=== PATIENT | male | born 1965 | race Caucasian/White ===

== ENCOUNTER 2016-08-18 14:55 | Emergency (ER) | payer MEDICAID, OTHER ==
[~2016-08-18] VITALS: Ht 170.2 cm; Wt 82.5 kg
[2016-08-18 15:04] VITALS: Ht 170.2 cm; Wt 82.5 kg
[2016-08-18] MEDS ORDERED: IBUP-1542 PO (15:31)
[2016-08-18] MEDS ORDERED: AMOX1TAB10 PO (15:31)
--- NOTE | 2016-08-18 15:37 | ERD ---
ER Documentation Chief Complaint Date/Time DATE: 08/18/16 TIME: 15:33 Chief Complaint BILATERAL EARACHE X 1 WEEK HPI This is a 51-year-old male complaining of bilateral ear pain 2 weeks associated with decreased hearing. Patient denies any trauma. Denies any medical or surgical history. Patient took ibuprofen for symptom relief. Patient denies any recent history of fever, headache, cough, runny nose, shortness of breath, chest pain or dizziness. Denies any recent sick contact or recent travel outside the country. ROS All systems reviewed and are negative except as per history of present illness. Medications Home Meds Active Scripts Ibuprofen* (Motrin*) 600 Mg Tab, 600 MG PO Q6H Y for PAIN AND OR ELEVATED TEMP, #30 TAB Prov:CORNELIUS ROBLES 08/18/16 Amoxicillin/Potassium Clav (Amox-Clav 875-125 mg Tablet) 875-125 mg Tab, 1 TAB PO BID for 10 Days, #20 TAB Prov:CORNELIUS ROBLES 08/18/16 Physical Exam Vitals Vital Signs Date Time Temp Pulse Resp B/P Pulse Ox O2 Delivery O2 Flow Rate FiO2 08/18/16 15:04 98.4 67 18 124/76 Physical Exam Physical Exam CONST: Well-developed, well-nourished, in no acute distress. Nontoxic in appearance. HEENT: Right TM perforation with purulent drainage. Left TM is erythematous without perforation. Normal conjunctiva. EOM intact. External ear is normal. Clear oropharnyx without erythema. No uvular deviation. Moist mucous membranes. Supple neck. No meningismus. No submandibular induration. RESP: Clear to auscultation bilaterally. No wheezing. CARDIO: Regular rate and rhythm, no murmurs. ABD: Soft, non tender, non distended. Normal bowel sounds. No McBurney's point tenderness. No guarding or rigidity. No peritoneal signs. SKIN: No petechiae or rashes. BACK: No midline or flank tenderness. EXT: No cyanosis or edema. Distal pulses equal and bilateral. NEURO: Awake and alert, appropriate for age. Procedures/[facility] EMERGENCY DEPARTMENT COURSE/MEDICAL DECISION MAKING This is a 51-year-old male who comes to the emergency room secondary to complaints of bilateral ear pain for 2 weeks associated with decreased hearing. Right TM perforation noted with purulent drainage. Left TM is erythematous without perforation. Patient is afebrile upon assessment. My primary diagnosis is otitis media. Secondary diagnosis is ear pain Differential diagnoses considered but not limited to pneumonia, bronchitis, influenza, upper respiratory infection, asthma, pharyngitis, peritonsillar abscess, otitis media, otitis externa.. Pt is hemodynamically stable upon reassessment. The patient was discharged for outpatient management with a prescription for Augmentin and ibuprofen. The patient was advised to followup with their PMD in 1 -2 days and to return to the Emergency Department if there are any new or worsening symptoms. The patient understood and agreed with the diagnosis, treatment and plan. Patient is stable for discharge at this time. Departure Diagnosis: Primary Impression: Otitis media Otitis media type: suppurative Laterality: right Chronicity: acute Recurrence: not specified as recurrent Spontaneous tympanic membrane rupture: with spontaneous rupture Qualified Code: H66.011 - Acute suppurative otitis media of right ear with spontaneous rupture of tympanic membrane, recurrence not specified Additional Impression: Ear pain Laterality: bilateral Qualified Code: H92.03 - Ear pain, bilateral Condition: Stable Patient Instructions: Otitis Media, Abx Tx (Adult) [facility]errals[facility] Usted se ibrahim hecho un examen mdico de control que le indica que no est en tavo condicin que requiera tratamiento urgente en el Departamento de Emergencia. Un estudio ms profundo y el tratamiento de hendrix condicin pueden esperar sin ningn riesgo hasta que usted sea atendida/o en el consultorio de hendrix mdico o tavo cl yolanda. Es responsabilidad suya arreglar tavo ronnie para el seguimiento del maura. MANEJO DE CONDICIONES NO URGENTES EN EL FUTURO 1) Si usted tiene un mdico de atencin primaria: Usted debera llamar a hendrix mdico de atencin primaria antes de venir al departamento de emergencia. Despus de las horas de consultorio, hendrix doctor o hendrix asociado/a est disponible por telfono. El mdico o enfermero de jeanmarie en el servicio telefnico puede asesorarle por olga medio para atender el problema, o maura contrario se puede programar tavo ronnie. 2) Si usted no tiene un mdico de atencin primaria: Llame al mdico o clnica de referencia que aparece abajo concepción las horas de consultorio para hacer tavo ronnie para que le vean. CLINICAS: [facility] [phone] [facility] [phone] [address] [facility] [phone] [place] [id number] [phone] [place] [address] [phone] [facility] [phone] [address] [facility] [facility] () Usted se ibrahim hecho un examen mdico de control que le indica que no est en tavo condicin que requiera tratamiento urgente en el Departamento de Emergencia. Un estudio ms profundo y el tratamiento de hendrix condicin pueden esperar sin ningn riesgo hasta que usted sea atendida/o en el consultorio de hendrix mdico o tavo cl yolanda. Es responsabilidad suya arreglar tavo ronnie para el seguimiento del maura. MANEJO DE CONDICIONES NO URGENTES EN EL FUTURO 1) Si usted tiene un mdico de atencin primaria: Usted debera llamar a hendrix mdico de atencin primaria antes de venir al departamento de emergencia. Despus de las horas de consultorio, hendrix doctor o hendrix asociado/a est disponible por telfono. El mdico o enfermero de jeanmarie en el servicio telefnico puede asesorarle por olga medio para atender el problema, o maura contrario se puede programar tavo ronnie. 2) Si usted no tiene un mdico de atencin primaria: Llame al mdico o condado institucions de referencia que aparece abajo concepción las horas de consultorio para hacer tavo ronnie para que le vean. SI USTED NO PUEDE PAGAR PARA CARLOS UN MEDICO puede ir a: [facility] [address] [place] [address] [facility] [address] [place] [address] [facility] [address] [place] [address] [facility] [address] [place], [place] [id number] Additional Instructions: evitar el uso de q-tips en los odos Seguimiento con hendrix mdico de atencin primaria en 1-2 pate. Volver al Departamento de la emergencia inmediatamente si tiene alguno nuevo o empeoramiento de los sntomas, incontrolada fiebre u otros sntomas inexplicables. [employer] todos los medicamentos jamal lo indique. CORNELIUS ROBLES Aug 18, 2016 15:37
== END 2016-08-18 15:37 | disposition home or self-care (01) ==
LOC: E/R 14:55
DX: H66.011 Acute suppurative otitis media with spontaneous rupture of ear drum, right ear (principal)
CPT/HCPCS: 99283

== ENCOUNTER 2017-01-10 18:46 | Emergency (ER) | payer MEDICAID ==
[~2017-01-10] VITALS: Ht 172.7 cm; Wt 80.5 kg
[~2017-01-10 18:46] MED LIST: AMOX1TAB10 PO; IBUP-1542 PO
[2017-01-10 19:25] VITALS: Ht 172.7 cm; Wt 80.5 kg
[2017-01-10] MEDS ORDERED: SOD CHLORIDE 0.9% 1,000 ML IV STA (19:45)
[2017-01-10] MEDS ORDERED: ONDANSETRON 4 MG INJ IV STA (19:45)
[2017-01-10] MEDS ORDERED: morphine 4 MG/ML VIAL IV STA (19:45)
[2017-01-10] MEDS ORDERED: ACETAMINOPHEN 500 MG TAB PO STA (19:49)
--- NOTE | 2017-01-10 19:49 | ERD ---
ER Documentation Chief Complaint Date/Time DATE: 01/10/17 TIME: 19:48 Chief Complaint abd pain n/v/d x 2 days HPI This is a 51-year-old male who presents the emergency department today complaining of abdominal pain, vomiting, diarrhea and fevers for the past 2 days. Patient states he took Tylenol approximately 2 hours ago. States that a couple of days ago he ate at a street truck and started vomiting 1 hour after that. Denies any dysuria. ROS All systems reviewed and are negative except as per history of present illness. Medications Home Meds Active Scripts Dicyclomine Hcl* (Bentyl*) 10 Mg Capsule, 10 MG PO QID, #30 CAP Prov:RADHA CASTELLON-C 01/10/17 Ondansetron Hcl* (Zofran*) 4 Mg Tablet, 4 MG PO Q6H for NAUSEA AND/OR VOMITING, #30 TAB Prov:RADHA CASTELLON-C 01/10/17 Acetaminophen* (Tylophen*) 500 Mg Capsule, 1 CAP PO Q6H Y for PAIN AND OR ELEVATED TEMP, #30 CAP Prov:RADHA CASTELLONC 01/10/17 Ibuprofen* (Motrin*) 800 Mg Tab, 800 MG PO Q6, #30 TAB Prov:RADHA CASTELLON-C 01/10/17 Ibuprofen* (Motrin*) 600 Mg Tab, 600 MG PO Q6H Y for PAIN AND OR ELEVATED TEMP, #30 TAB Prov:CORNELIUS ROBLES 08/18/16 Amoxicillin/Potassium Clav (Amox-Clav 875-125 mg Tablet) 875-125 mg Tab, 1 TAB PO BID for 10 Days, #20 TAB Prov:CORNELIUS ROBLES 08/18/16 Allergies Allergies: Coded Allergies: No Known Allergy (Unverified , 01/10/17) Physical Exam Vitals Vital Signs Date Time Temp Pulse Resp B/P Pulse Ox O2 Delivery O2 Flow Rate FiO2 01/10/17 19:25 100.4 83 18 122/78 99 Physical Exam Const: No acute distress Head: Atraumatic Eyes: Normal Conjunctiva ENT: Normal External Ears, Nose and Mouth. Neck: Full range of motion..~ No meningismus. Resp: Clear to auscultation bilaterally Cardio: Regular rate and rhythm, no murmurs Abd: Soft, diffuse abdominal pain worse in the epigastric region non distended. Normal bowel sounds Skin: No petechiae or rashes Back: No midline or flank tenderness Ext: No cyanosis, or edema Neur: Awake and alert Psych: Normal Mood and Affect Result Diagram: 01/10/17201501/10/172015 Results 24 hrs Laboratory Tests Test 01/10/17 20:16 White Blood Count 6.410^3/ul Red Blood Count 5.1210^6/ul Hemoglobin 15.9g/dl Hematocrit 45.7% Mean Corpuscular Volume 89.3fl Mean Corpuscular Hemoglobin 31.1pg Mean Corpuscular Hemoglobin Concent 34.8g/dl Red Cell Distribution Width 11.9% Platelet Count 39703^3/UL Mean Platelet Volume 11.2fl Neutrophils % 70.2% Lymphocytes % 17.1% Monocytes % 10.5% Eosinophils % 0.8% Basophils % 0.6% Nucleated Red Blood Cells % 0.0/100WBC Neutrophils # (Manual) 4.510^3/ul Lymphocytes # 1.110^3/ul Monocytes # 0.710^3/ul Eosinophils # 0.110^3/ul Basophils # 0.010^3/ul Nucleated Red Blood Cells # 0.010^3/ul Urine Color YELLOW Urine Clarity CLEAR Urine pH 7.0 Urine Specific [place] 1.013 Urine Ketones NEGATIVEmg/dL Urine Nitrite NEGATIVEmg/dL Urine Bilirubin NEGATIVEmg/dL Urine Urobilinogen NEGATIVEmg/dL Urine Leukocyte Esterase NEGATIVELeu/ul Urine Microscopic RBC 0/HPF Urine Microscopic WBC 0/HPF Urine Hemoglobin NEGATIVEmg/dL Urine Glucose NEGATIVEmg/dL Urine Total Protein 1+mg/dl Sodium Level 138mmol/L Potassium Level 3.3mmol/L Chloride Level 98mmol/L Carbon Dioxide Level 28mmol/L Anion Gap 15 Blood Urea Nitrogen 16mg/dl Creatinine 1.00mg/dl Glucose Level 226mg/dl Calcium Level 9.3mg/dl Total Bilirubin 0.4mg/dl Direct Bilirubin 0.00mg/dl Indirect Bilirubin 0.4mg/dl Aspartate Amino Transf (AST/SGOT) 32IU/L Alanine Aminotransferase (ALT/SGPT) 47IU/L Alkaline Phosphatase 88IU/L Total Protein 7.5g/dl Albumin 4.4g/dl Globulin 3.10g/dl Albumin/Globulin Ratio 1.41 Lipase 41U/L Current Medications Medications (Trade) Dose Ordered Sig/Suleman Route PRN Reason Start Time Stop Time Status Last Admin Dose Admin Sodium Chloride (NS) 1,000 ml @ 1,000 mls/hr Q1H STAT IV 01/10/17 19:45 01/10/17 20:44 DC 01/10/17 20:23 Morphine Sulfate (morphine) 4 mg ONCE STAT IV 01/10/17 19:45 01/10/17 19:47 DC 01/10/17 20:23 Ondansetron HCl (Zofran Inj) 4 mg ONCE STAT IV 01/10/17 19:45 01/10/17 19:48 DC 01/10/17 20:23 Famotidine (Pepcid) 20 mg ONCE ONCE PO 01/10/17 20:00 01/10/17 20:01 DC 01/10/17 20:23 Acetaminophen (Tylenol Tab) 500 mg ONCE STAT PO 01/10/17 19:49 01/10/17 19:50 DC 01/10/17 20:23 DIAGNOSTIC IMAGING REPORT Patient: YASSINE MIGUEL : 1965 Age: 51 Sex: M MR #: [id number] DOS: 01/10/171944 Ordering MD: RADHA CASTELLON PA-C Location: [facility] Room/Bed: PROCEDURE: CT ABDOMEN AND PELVIS WITHOUT CONTRAST: CLINICAL INDICATION: 51 years of age, male , abdominal pain. COMPARISON: None TECHNIQUE: CT of the abdomen and pelvis was performed without intravenous contrast. Oral contrast was not administered prior to the examination. Coronal and sagittal reformatted images were obtained from the axial source images. Images were reviewed on a high-resolution PACS workstation. Dose information: Based on a 32 cm phantom, the estimated radiation dose (CTDI vol mGy) for each series in this exam is 10.1 . The estimated cumulative dose (DLP mGy-cm) is 675.3 . FINDINGS: In the absence of intravenous contrast, the study constitutes a limited assessment of the solid organs and vessels. LUNG BASES: Normal. ABDOMEN/PELVIS: Liver: Mild steatosis and hepatomegaly measuring 19.3 cm in length. Gallbladder: Normal. Bile ducts: No intrahepatic or extrahepatic biliary duct dilatation. Spleen: Normal. Pancreas: Normal. Adrenal glands: Normal. Kidneys and ureters: Normal. Negative for urinary calculi or hydronephrosis. Aorta and IVC: Atherosclerosis abdominal aorta. No aneurysm. Lymph nodes: Small mesenteric lymph nodes are likely reactive Gastrointestinal tract: Normal. Appendix: Appendix measures at the upper limits of normal at 0.7 cm without edema in the surrounding fat. Diverticulosis of the descending and sigmoid colon without clear evidence of diverticulitis. Bowel loops are decompressed. Bladder: Normal. Pelvic Organs: Normal. Peritoneal cavity: Trace free pelvic fluid. Negative for free intraperitoneal air Abdominal wall: Normal. BONES: Musculoskeletal: Mild degenerative changes. No suspicious bone lesions. IMPRESSION: Mild hepatomegaly and hepatic steatosis. This is a potential cause for abdominal pain. Recommend correlation with liver tests to evaluate for potential steatohepatitis. Colonic diverticulosis without evidence of diverticulitis. Appendix measures at the upper limits of normal without definite evidence of appendicitis at this time. Recommend clinical correlation to rule out early appendicitis. RPTAT: HCTS Physician Henrik Date Time Electronically viewed and signed by Physician Henrik on 01/10/2017 20: 56 CS/ CC: RADHA CASTELLON PA-C Procedures/[facility] This 51-year-old male presents the emergency department today complaining of fever, abdominal pain, vomiting and diarrhea. Patient had a low-grade temperature of 100.4 here in the emergency department. On physical exam he did have diffuse abdominal pain but it did appear to be localized primarily to the epigastric region however given the diffuse nature I did obtain laboratory workup as well as imaging. Laboratory workup blood cell count. He is not anemic. Platelets are within normal limits. Electrolytes are within normal limits. Glucose is elevated at 226. Liver enzymes are within normal limits. Lipase within normal limits. UA is negative for infection. CT abdomen pelvis noncontrast shows mild hepatomegaly and hepatic steatosis. This potential cause for abdominal pain. Patient has colonic diverticulosis without evidence of diverticulitis. The appendix measures at the upper limits of normal at 0.7 cm without edema in the surrounding fat and without definite of evidence of appendicitis at this time. Low suspicion for appendicitis given patient has no elevated white blood cell count and no specific tenderness at Burney's. Patient was given IV fluids, Zofran, morphine, Pepcid and Tylenol here in the emergency department reported feeling significantly better. Patient symptoms at this time is consistent with abdominal pain, fever vomiting and diarrhea possibly gastroenteritis likely viral. Low suspicion for acute surgical abdomen. I explained the results of the patient. I have explained to him that he does need to follow-up in the next 8-12 hours and return to the emergency department if his fever or worsening of symptoms. Patient is given a prescription for Tylenol, Motrin, Zofran and Bentyl At this time the patient is stable for discharge and outpatient management. Patient should follow up with their PCP in the next 1-2 days. They may return to the emergency department sooner for any persistent or worsening of symptoms. Patient understood and agreed with the plan. Departure Diagnosis: Primary Impression: Abdominal pain Abdominal location: generalized Qualified Code: R10.84 - Generalized abdominal pain Additional Impression: Vomiting and diarrhea Condition: RADHA Pa PA-C Jan 10, 2017 19:49
[2017-01-10] MEDS ORDERED: FAMOTIDINE 20 MG TAB PO ONE (20:00)
[2017-01-10 20:25] LABS: BASOPHILS % 0.6 % (0.0-2.0); EOSINOPHILS # 0.1 10^3/ul (0.0-0.5); EOSINOPHILS % 0.8 % (0.0-7.0); HEMATOCRIT 45.7 % (42.0-52.0); HEMOGLOBIN 15.9 g/dl (14.0-18.0); LYMPHOCYTES # 1.1 10^3/ul (0.8-2.9); LYMPHOCYTES % 17.1 % (15.0-51.0); MEAN CORPUSCULAR HEMOGLOBIN 31.1 pg (29.0-33.0); MEAN CORPUSCULAR HGB CONC 34.8 g/dl (32.0-37.0); MEAN CORPUSCULAR VOLUME 89.3 fl (82.0-101.0); MEAN PLATELET VOLUME 11.2 fl (7.4-10.4); MONOCYTE # 0.7 10^3/ul (0.3-0.9); MONOCYTES % 10.5 % (0.0-11.0); NEUTROPHILS % 70.2 % (39.0-77.0); PLATELET COUNT 176 10^3/UL (140-415); RED BLOOD COUNT 5.12 10^6/ul (4.70-6.10); RED CELL DISTRIBUTION WIDTH 11.9 % (11.5-14.5); WHITE BLOOD COUNT 6.4 10^3/ul (4.8-10.8)
[2017-01-10 20:27] LABS: ADD UMIC YES; UR ASCORBIC ACID NEGATIVE (NEGATIVE); UR BILIRUBIN (Dip) NEGATIVE (NEGATIVE); UR BLOOD (Dip) NEGATIVE (NEGATIVE); UR CLARITY CLEAR (CLEAR); UR COLOR YELLOW (YELLOW); UR GLUCOSE (Dip) NEGATIVE (NEGATIVE); UR KETONES (Dip) NEGATIVE (NEGATIVE); UR LEUKOCYTE ESTERASE (Dip) NEGATIVE Leu/ul (NEGATIVE); UR NITRITE (Dip) NEGATIVE (NEGATIVE); UR RBC 0 /HPF (0-5); UR SPECIFIC GRAVITY (Dip) 1.013 (1.003-1.030); UR TOTAL PROTEIN (Dip) 1+ mg/dl (NEGATIVE); UR UROBILINOGEN (Dip) NEGATIVE (NEGATIVE)
[2017-01-10 20:51] LABS: ALBUMIN 4.4 g/dl (3.3-4.9); ALBUMIN/GLOBULIN RATIO 1.41; BILIRUBIN,INDIRECT 0.4 mg/dl (0-1.1); BILIRUBIN,TOTAL 0.4 mg/dl (0.2-1.3); CALCIUM 9.3 mg/dl (8.4-10.2); POTASSIUM 3.3 mmol/L (3.5-5.1); TOTAL PROTEIN 7.5 g/dl (6.1-8.1)
--- NOTE | 2017-01-10 20:56 | RADRPT ---
PROCEDURE: CT ABDOMEN AND PELVIS WITHOUT CONTRAST: CLINICAL INDICATION: 51 years of age, male , abdominal pain. COMPARISON: None TECHNIQUE: CT of the abdomen and pelvis was performed without intravenous contrast. Oral contrast wa s not administered prior to the examination. Coronal and sagittal reformatted images were obtained from the axial source images. Images were revi ewed on a high-resolution PACS workstation. Dose information: Based on a 32 cm phantom, the estimated radiation dose (CTDI vol mGy) for each ser ies in this exam is 10.1 . The estimated cumulative dose (DLP mGy-cm) is 675.3 . FINDINGS: In the absence of intravenous contrast, the study constitutes a limited assessment of the solid orga ns and vessels. LUNG BASES: Normal. ABDOMEN/PELVIS: Liver: Mild steatosis and hepatomegaly measuring 19.3 cm in length. Gallbladder: Normal. Bile ducts: No intrahepatic or extrahepatic biliary duct dilatation. Spleen: Normal. Pancreas: Normal. Adrenal glands: Normal. Kidneys and ureters: Normal. Negative for urinary calculi or hydronephrosis. Aorta and IVC: Atherosclerosis abdominal aorta. No aneurysm. Lymph nodes: Small mesenteric lymph nodes are likely reactive Gastrointestinal tract: Normal. Appendix: Appendix measures at the upper limits of normal at 0.7 cm without edema in the surrounding fat. Diverticulosis of the descending and sigmoid colon without clear evidence of diverticulitis. Bowel loops are decompressed. Bladder: Normal. Pelvic Organs: Normal. Peritoneal cavity: Trace free pelvic fluid. Negative for free intraperitoneal air Abdominal wall: Normal. BONES: Musculoskeletal: Mild degenerative changes. No suspicious bone lesions. IMPRESSION: Mild hepatomegaly and hepatic steatosis. This is a potential cause for abdominal pain. Recommend c orrelation with liver tests to evaluate for potential steatohepatitis. Colonic diverticulosis without evidence of diverticulitis. Appendix measures at the upper limits of normal without definite evidence of appendicitis at this ti me. Recommend clinical correlation to rule out early appendicitis. RPTAT: HCTS Physician Henrik Date Time Electronically viewed and signed by Physician Henrik on 01/10/2017 20:56 CS/
[2017-01-10] MEDS ORDERED: ACET500C5 PO (21:22)
[2017-01-10] MEDS ORDERED: IBUP800T25 PO (21:22)
[2017-01-10] MEDS ORDERED: DICY10CA60 PO (21:22)
[2017-01-10] MEDS ORDERED: ONDA4TAB8 PO (21:22)
[2017-01-10 21:51] VITALS: BP 120/73; PULSE 64; RESP 18; TEMP 98.7
== END 2017-01-10 21:51 | disposition home or self-care (01) ==
LOC: FTE 18:46
DX: R10.84 Generalized abdominal pain (principal); R11.10 Vomiting, unspecified; R19.7 Diarrhea, unspecified
CPT/HCPCS: 36415; 74176; 80053; 81001; 83690; 85025; 96374; 96375; J2270; J2405; J7030; Z7502; Z7610